=== PATIENT | male | born 1955 | race Caucasian/White ===

== ENCOUNTER → 2017-08-03 | Outpatient (CLI) | payer BC ==
[~2017-08-03] MED LIST: Coumadin,Jantoven PO; DOXYCYCLINE HY100 MG; FLOMAX0.4 MG PO; Flomax PO; INR ON
== END | disposition home or self-care (01) ==
LOC: CDC 08:32
DX: Z01.810 Encounter for preprocedural cardiovascular examination (principal); R00.1 Bradycardia, unspecified; R94.31 Abnormal electrocardiogram [ECG] [EKG]
CPT/HCPCS: 93000